=== PATIENT | female | born 1965 | race Caucasian/White ===

== ENCOUNTER 2016-03-29 05:21 | Emergency (ER) | payer MEDICAID ==
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
== END 2016-03-29 06:50 | disposition home or self-care (01) ==
LOC: ER 05:21
DX: S50.812A Abrasion of left forearm, initial encounter (principal); S80.812A Abrasion, left lower leg, initial encounter; S80.211A Abrasion, right knee, initial encounter; M54.5 Low back pain; E78.2 Mixed hyperlipidemia; F17.200 Nicotine dependence, unspecified, uncomplicated; W25.XXXA Contact with sharp glass, initial encounter; Y93.89 Activity, other specified; Y92.008 Other place in unspecified non-institutional (private) residence as the place of occurrence of the external cause; Y99.8 Other external cause status
CPT/HCPCS: 99284; 96372; 90715; J1885; Z7502